=== PATIENT | female | born 1990 | race African-American/Black ===

== ENCOUNTER 2017-09-28 20:45 | Emergency (ER) | payer SELFPAY ==
[2017-09-28] MEDS: LIDOCAINE 1% PF 2 ML VIAL. INJ (21:02)
== END 2017-09-28 21:27 | disposition home or self-care (01) ==
LOC: ER 21:27
DX: N61.1 Abscess of the breast and nipple (principal)
CPT/HCPCS: 10060; 99283

== ENCOUNTER 2017-12-01 21:54 | Emergency (ER) | payer SELFPAY ==
[2017-12-01 22:37] LABS: BILIRUBIN,URINE NEGATIVE (NEG); CLARITY,URINE CLEAR; COLOR,URINE YELLOW; GLUCOSE,URINE NEGATIVE (NEG); NITRITE,URINE NEGATIVE (NEG); PROTEIN,URINE NEGATIVE (NEG-TRACE)
[2017-12-01 22:45] LABS: NEG OBC UR NEG; POS OBC UR POS; U PREG PATIENT NEGATIVE (NEG)
[2017-12-01 22:50] LABS: BACTERIA,URINE MANY /HPF (0-FEW); RBC,URINE 0 /HPF (0-2); SQUAMOUS EPITHELIAL CELL,UR MOD /LPF; WBC,URINE >40 /HPF (0-4)
[2017-12-01] MEDS: cefTRIAXone IM 250 MG VIAL IM (23:52)
[2017-12-01] MEDS: metroNIDAZOLE 500 MG TABLET PO (23:53)
[2017-12-01] MEDS: AZITHROMYCIN 250 MG TABLET. PO (23:53)
[2017-12-03 15:26] LABS: CHLAMYDIA PROBE Negative (Negative); GC PROBE Negative (Negative)
== END 2017-12-02 00:20 | disposition home or self-care (01) ==
LOC: ER 12-02 00:20
DX: N39.0 Urinary tract infection, site not specified (principal); A64 Unspecified sexually transmitted disease
CPT/HCPCS: 81001; 81025; 87086; 87491; 87591; 96372; 99284; J0696; Q0111; Q0144

== ENCOUNTER 2018-04-20 10:23 | Emergency (ER) | payer OTHER ==
[~2018-04-20] VITALS: Ht 170.2 cm; Wt 99.8 kg
[~2018-04-20 10:23] MED LIST: IBUP-1060 PO; SULF1TAB24 PO
[2018-04-20 10:37] VITALS: BP 116/58
[2018-04-20] MEDS ORDERED: IBUPROFEN 400 MG TABLET. PO ONE (10:45)
[2018-04-20] MEDS ORDERED: cefTRIAXone IM 1 GM VIAL IM ONE (10:45)
[2018-04-20] MEDS ORDERED: DIPHTH,PERTUSS(ACELL),TET TOX 0.5 ML DISP.SYRIN. VAX IM ONE (10:45)
[2018-04-20] MEDS ORDERED: HYDROcodone/APAP 5/325MG 1 TAB TABLET PO ONE (10:45)
[2018-04-20] MEDS ORDERED: LIDOCAINE 1% PF 2 ML VIAL. INJ ONE (10:45)
--- NOTE | 2018-04-20 10:51 | PHYS DOC ---
Past Medical History Past Medical History: No Pertinent History Past Surgical History: , Tonsillectomy Additional Past Surgical Histo: D&C Alcohol Use: None Drug Use: None Adult General Chief Complaint Chief Complaint: BREAST PROBLEM HPI HPI Patient is a 27 year old female with no significant medical history who presents today complaining of an abscess to the left breast that she's had for 2 -3 months. Patient states an attempt was made to drain the abscess but it never cleared up. Patient denies any personal family history of breast cancer. Denies any fever, denies any chance she is . She states the abscess is usually worse around her menstrual cycles. Review of Systems Review of Systems Constitutional: Denies fever or chills [] : Denies dysuria or hematuria [] Musculoskeletal: Denies back pain or joint pain [] Integument: left breast abscess Neurologic: Denies headache, focal weakness or sensory changes [] All other systems were reviewed and found to be within normal limits, except as documented in this note. Current Medications Current Medications Current Medications Medications (Trade) Dose Ordered Sig/Demetris Start Time Stop Time Status Last Admin Dose Admin Acetaminophen/ Hydrocodone Bitart (Lortab 5/325) 1 tab 1X ONCE 04/20/18 10:45 04/20/18 10:46 DC 04/20/18 10:51 1 TAB Ceftriaxone Sodium (Rocephin Im) 1 gm 1X ONCE 04/20/18 10:45 04/20/18 10:46 DC 04/20/18 10:50 1 GM Diphtheria/ Tetanus/Acell Pertussis (Boostrix) 0.5 ml ONCE ONCE 04/20/18 10:45 04/20/18 10:46 DC Ibuprofen (Motrin) 800 mg 1X ONCE 04/20/18 10:45 04/20/18 10:46 DC 04/20/18 10:51 800 MG Lidocaine HCl (Xylocaine-Mpf 1% 2ml Vial) 2 ml 1X ONCE 04/20/18 10:45 04/20/18 10:46 DC 04/20/18 10:51 2 ML Allergies Allergies Allergies Coded Allergies Type Severity Reaction Last Updated Verified No Known Drug Allergies 09/28/17 No Physical Exam Physical Exam Constitutional: Well developed, well nourished, no acute distress, non-toxic appearance. [] Skin: Warm, dry, left breast at 1500 position just beside the alveolar with and none intubated area approximately 2 x 2 centimeters that is from tender to touch but not fluctuant. The area has surrounding approximately 2 cm of cellulitis. The area feels warm to touch. Cystic breasts noted bilaterally. Noted nipple dimpling. Extremities: No tenderness, no cyanosis, no clubbing, ROM intact, no edema. [] Neurologic: Alert and oriented X 3, normal motor function, normal sensory function, no focal deficits noted. [] Psychologic: Affect normal, judgement normal, mood normal. [] Current Patient Data Vital Signs Vital Signs Date Time Temp Pulse Resp B/P (MAP) Pulse Ox O2 Delivery O2 Flow Rate FiO2 04/20/18 10:37 98.6 94 18 116/58 (77) 98 Room Air 98.6 EKG EKG [] Radiology/Procedures Radiology/Procedures [] Course & Med Decision Making Course & Med Decision Making Pertinent Labs and Imaging studies reviewed. (See chart for details) This is a 27-year-old female patient presenting to the ED today with left breast abscess that she's had for 2-3 months. Patient does has had the abscess drained before with no success. No fluctuance today noted on the abscess. Patient is not per her statement. Considering this patient has had this abscess for 2-3 months i recommended further following up with the specialist/general surgeon. In the meantime she was given Rocephin IM. Also given clindamycin prescription and tetanus shot in the ED. Provided general surgery for follow-up as an outpatient. Dragon Disclaimer Dragon Disclaimer This electronic medical record was generated, in whole or in part, using a voice recognition dictation system. Departure Departure Impression: Primary Impression: Left breast abscess Disposition: 01 HOME, SELF-CARE Condition: STABLE Referrals: UNKNOWN PCP NAME (PCP) LILA MAYNARD MD follow up in one to two weeks Patient Instructions: Abscess Additional Instructions: You were seen for left breast abscess. We put you on antibiotics, ensure you complete them. Follow-up with the general surgeon provided as an outpatient in the next 1-2 weeks. Take the prescribed pain medicine as needed. Come back to the ED at any point symptoms worsen. Scripts Naproxen (NAPROXEN) 500 Mg Tablet.dr 1 TAB PO BID, #20 TAB 0 Refills Prov: JOANNE RAINEY RN WOUND 04/20/18 Hydrocodone/Apap 5-325 (NORCO 5-325 TABLET) 1 Each Tablet 1 TAB PO Q6HRS, #20 TAB Prov: JOANNE RAINEY APRN 04/20/18 Clindamycin Hcl (CLINDAMYCIN HCL) 150 Mg Capsule 3 CAP PO TID, #90 CAP Prov: JOANNE RAINEY APRN 04/20/18 JOANNE RAINEY APRN Apr 20, 2018 10:51
[2018-04-20] MEDS ORDERED: CLIN150C14 PO (11:01)
[2018-04-20] MEDS ORDERED: HYDR-971 PO (11:01)
[2018-04-20] MEDS ORDERED: NAPR500T8 PO (11:01)
== END 2018-04-20 11:16 | disposition home or self-care (01) ==
LOC: ER 10:23
DX: N61.1 Abscess of the breast and nipple (principal); N60.12 Diffuse cystic mastopathy of left breast; N60.11 Diffuse cystic mastopathy of right breast; Z90.89 Acquired absence of other organs; Z98.890 Other specified postprocedural states
CPT/HCPCS: 90471; 90715; 96372; 99284; J0696

== ENCOUNTER → 2018-05-01 | Outpatient (CLI) | payer OTHER ==
[2018-04-20 10:37] VITALS: BP 116/58
[~2018-05-01] MED LIST changes: +CLIN150C14 PO; +HYDR-971 PO; +NAPR500T8 PO
--- NOTE | 2018-05-01 14:58 | RAD ---
Left breast ultrasound, 05/01/2018: History: Follow-up abscess Reportedly the patient has had a mass at the 3:30 location in the left breast which was thought to be an abscess and has recently spontaneously drained through a new skin wound. A targeted ultrasound of that region was performed. No fluid collection or discrete mass is currently seen sonographically. Clinical surveillance is suggested. If a lump recurs, sonographic and possibly mammographic follow-up is suggested.
== END | disposition home or self-care (01) ==
LOC: US 14:12
PROVIDERS: ATTEND Surgery
DX: N61.1 Abscess of the breast and nipple (principal)
CPT/HCPCS: 76641